=== PATIENT | female | born 1945 | race Caucasian/White ===

== ENCOUNTER 2016-11-05 16:39 | Observation (INO) | payer MEDICARE ==
[~2016-11-05] VITALS: Ht 175.3 cm; Wt 63.6 kg
[~2016-11-05 16:39] MED LIST: GLUMETZA500 MG PO; LEVOTHYROXINE88 MCG PO; NORCO 5-325 TA1 EACH PO; SIMVASTATIN40 MG PO
--- NOTE | 2016-11-05 19:14 | EKG ---
[facility] [address] [facility] [place] [address] Signed Sinus rhythm with premature supraventricular complexes Otherwise normal ECG No previous ECGs available Confirmed by LASHAUN KELLER MD ([id number]) on 11/05/2016 7:13:55 PM Electronically Signed By: LASHAUN KELLER MD 11/05/16 1914 PATIENT NAME: MATT GARLAND ALEKSANDER Electrocardiogram DATE OF : 47 PHYSICIAN: LASHAUN KELLER MD REPORT #: [id number] REPORT IS CONFIDENTIAL AND NOT TO BE RELEASED WITHOUT AUTHORIZATION
--- NOTE | 2016-11-05 20:32 | NUR ---
71YR OLD WOMAN ADMITTED FROM ER VIA STRETCHER TO ROOM 119 ACCOMPANIED BY . PT IS ALERT, ORIENTED, ABLE TO STAND AND TRANSFER SELF ONTO BED. DENIES ANY HEADACHE AT THIS TIME. ORIENTED TO ROOM AND CALL LIGHT. DR SCOTT HERE TO ASSESS PT. CALL LIGHT IN EASY REACH.
--- NOTE | 2016-11-05 21:51 | NUR ---
PT ATE DINNER TRAY, HS MEDS GIVEN, CONT. TO DENY ANY HEADACHE OR DISCOMFORT, UP TO BATHROOM TO VOID. NO DIZZINESS OR WEAKNESS. PLACED ON TELE #4 [id number]. CALL LIGHT IN EASY REACH. WATCHING TV PROGRAM.
--- NOTE | 2016-11-05 23:23 | NUR ---
REPORT RECIEVED FROM CLIENT EXECUTIVE. RESUMING CARE OF PATIENT. PATIENT RESTING IN BED ON LEFT SIDE. EYES CLOSED. BREATHING EVEN AND NONLABORED. RR14. CALL LIGHT WITHIN REACH.
--- NOTE | 2016-11-06 01:56 | NUR ---
PATIENT ALERTED STAFF FOR NEED TO USE THE BATHROOM. PATIENT WAS A STAND BY ASSIST. GAIT APPEARED STEADY AND PATIENT DENIED ANY LIGHTHEADEDNESS OR DIZZINESS. PATIENT DENIED PAIN. PATIENT RETURNED TO BED AND DENIES FURTHER NEEDS AT THIS TIME. CALL LIGHT WITHIN REACH.
--- NOTE | 2016-11-06 04:27 | NUR ---
PATIENT RESTING IN BED. EYES CLOSED. RR 16.
--- NOTE | 2016-11-06 05:16 | NUR ---
PATIENT RESTED WELL DURING THE SHIFT. PATIENT ADMITTED FROM ED FOR TIA, PATIENT COMPLAINED OF LEFT SIDED FACIAL DROOP, SYMPTOMS RESOLVED PROIOR TO ARRIVAL. PATIENT HAS IV IN RIGHT ARM WITH NS AT 75MLS/HR. PATIENT STAND BY ASSIT. GAIT STEADY. NO COMPLAINTS OF PAIN OR NAUSEA. TELLY #4, NORMAL SINUS RHYTHM. CARDIAC DIET.
--- NOTE | 2016-11-06 06:05 | NUR ---
PATIENT UP TO BATHROOM. STAND BY ASSIST. PATIENT DENIES PAIN OR NAUSEA. PATIENT AAOX3. NEURO STATUS WNL. LUNG SOUNDS CLEAR. PATIENT REQUESTED TO TAKE HER HOME THYROID MEDICATION AT THIS TIME DUE TO HER NORMAL MEDICATION ROUTINE. RECIEVED TELEPHONE ORDERS FROM MD ALLOWING PATIENT TO TAKE HOME MEDICATION. VERIFIED VERBAL ORDER USING READ BACK METHOD. PATIENT BACK IN BED. CALL LIGHT WITHIN REACH. NO FURTHER REQUEST AT THIS TIME.
--- NOTE | 2016-11-06 06:59 | NUR ---
[employer]UST[employer]AL [employer] MANAGER YULISA BLOOD LAB WAS UNABLE TO. PATIENT TOLERATED ACTIVITY WELL. BLOOD SENT TO LAB. PATIENT DENIES ANY FURTHER NEEDS CALL LIGHT IN REACH.
--- NOTE | 2016-11-06 07:31 | NUR ---
RECIEVED BEDSIDE REPORT FROM NKECHI SOTO AND NKECHI JAUREGUI. PT AWAKE AND ALERT IN BED. NO REPORTS OF PAIN, NAUSEA, AT THIS TIME. NO SLURRING OF SPEECH, NO WEAKNESS NOTED.
[2016-11-06] MEDS ORDERED: PLAVIX75 MG PO (08:54)
--- NOTE | 2016-11-06 10:24 | NUR ---
PT AND SPOUSE EDUCATED ABOUT NEW RX FROM PHARMACY AND RN. PT VERBALIZED UNDERSTANDING OF INSTRUCTIONS FOR MEDICATION. PT VERBALIZED UNDERSTANDING FOR FOLLOW UP CARE WITH PCP AND WHEN TO CALL THE DOCTOR. PT ESCORTED OFF THE FLOOR BY JOSE.
== END 2016-11-06 10:19 | disposition home or self-care (01) ==
LOC: ED 16:39 → MS 19:34
PROVIDERS: ADMIT Internal Medicine
DX: G45.9 Transient cerebral ischemic attack, unspecified (principal); E11.9 Type 2 diabetes mellitus without complications; E03.9 Hypothyroidism, unspecified; I77.74 Dissection of vertebral artery; I65.01 Occlusion and stenosis of right vertebral artery; E78.5 Hyperlipidemia, unspecified; Z79.84 Long term (current) use of oral hypoglycemic drugs; Z79.891 Long term (current) use of opiate analgesic; Z79.899 Other long term (current) drug therapy; Z88.3 Allergy status to other anti-infective agents; Z88.8 Allergy status to other drugs, medicaments and biological substances
CPT/HCPCS: 70496; 70498; 71010; 80048; 80053; 83735; 84484; 85025; 85610; 93005; 93010; 99285; G0378; J7030; Q9967

== ENCOUNTER 2019-10-17 06:25 | Day surgery (SDC) | payer MEDICARE ==
[~2019-10-17] VITALS: Ht 177.8 cm; Wt 60.3 kg
[~2019-10-17 06:25] MED LIST changes: +COZAAR25 MG PO; +FORTAMET500 MG PO; +PILOCARPINE HCL5 MG PO; +PLAVIX75 MG PO
--- NOTE | 2019-10-17 08:20 | NUR ---
10/17/19 0820 Juliana Perez 0816-PATIENT ARRIVED TO PACU ON 3L NC PLACED ON 2L. PATIENT DROWSY EYES OPEN DENIES PAIN OR NAUSEA. ENCOURAGED TO PASS GAS. IVF INFUSING.
--- NOTE | 2019-10-17 10:22 | OR ---
[facility] [address] [place], [place] [address] Signed DATE OF OPERATION: 10/17/2019 SURGEON: Valentin Hui MD PREOPERATIVE DIAGNOSES: 1. Mother with colon cancer in her 70s. 2. Brother with colon polyps in his 50s. POSTOPERATIVE DIAGNOSES: Long redundant colon. PROCEDURE: Colonoscopy without biopsy. ESTIMATED BLOOD LOSS: None. INDICATIONS: Matt is a 74-year-old female, asked to see me for a followup colonoscopy. We know that her mother had colon cancer in her 70s and her brother had colon polyps in his 50s. In addition, their family lives into the late 80s and into the 90s. Matt herself is quite healthy and functionally fit at age 73. She returns now for followup colonoscopy. Because of her long redundant colon, she does generally take a little extra Versed and fentanyl. She realizes that often keeps her sleep a longer than some others, will undergo a colonoscopy. In the meantime, she really has no lower GI complaints. In the office, I gave her a pamphlet on colonoscopy and we looked at that together along with the risks including, but not limited to gas bloating, crampy abdominal pain, bleeding, perforation requiring surgery, and missed diagnosis and again, we reviewed the need for IV conscious sedation, she had expressed understanding and wished to proceed. DESCRIPTION OF PROCEDURE: Matt was taken into our endoscopy suite and placed in the left lateral decubitus position. She took 5 mg of Versed and 150 mcg of fentanyl to cover the case. Again, we used some abdominal compression in order to advance the scope. The scope was passed back and forth and she was rotated into the supine position and eventually made it around hepatic flexure and we could see down the right colon. We had camera all the way up to the handle and we simply could not advance the scope any further. Her prep was quite excellent. Even then we did not have excellent detail of her cecum and the proximal 1/3 to 1/2 of the right colon. The rest of the colon was quite unremarkable although very long and redundant. No diverticulosis and no polyps. The rectum was Electronically Signed By: VALENTIN HUI MD 10/17/19 1022 PATIENT NAME: MATT GARLAND OPERATIVE REPORT DATE OF : 47 REPORT #: [id number] PHYSICIAN: VALENTIN HUI MD PCP: NIKKI FLORES MD REPORT IS CONFIDENTIAL AND NOT TO BE RELEASED WITHOUT AUTHORIZATION [facility] [address] [place], [place] [address] Signed unremarkable. Upon retroflexion of the scope, there was no additional pathology noted above the anal canal. After this, the gas was suctioned out and the colonoscope removed. Matt actually tolerated the procedure quite well. RECOMMENDATIONS: I will see Matt back in my office in 7 to 14 days to review her results. We will offer her a barium enema to better evaluate the right colon. Valentin Hui MD ALB/SALVADORL /[id number] cc: MD Valentin Felix MD Copies: NIKKI FLORES MD, ANDREW L MD ~ Electronically Signed By: VALENTIN HUI MD 10/17/19 1022 PATIENT NAME: MATT GARLAND OPERATIVE REPORT DATE OF : 47 REPORT #: [id number] PHYSICIAN: VALENTIN HUI MD PCP: NIKKI FLORES MD REPORT IS CONFIDENTIAL AND NOT TO BE RELEASED WITHOUT AUTHORIZATION
== END 2019-10-17 09:05 | disposition home or self-care (01) ==
LOC: DS 06:25 → OPS 06:25 → DS 06:45 → OPS 06:45
PROVIDERS: Colon & Rectal Surgery
PROC: 0DJD8ZZ Inspection of Lower Intestinal Tract, Via Natural or Artificial Opening Endoscopic (ICD-10-PCS; principal; 2019-10-17 06:45)
DX: K63.89 Other specified diseases of intestine (principal); E03.9 Hypothyroidism, unspecified; E11.9 Type 2 diabetes mellitus without complications; Z79.899 Other long term (current) drug therapy; Z79.84 Long term (current) use of oral hypoglycemic drugs; Z88.1 Allergy status to other antibiotic agents; Z80.0 Family history of malignant neoplasm of digestive organs
CPT/HCPCS: 99153; G0500; J2250; J3010; J7121

== ENCOUNTER 2021-10-04 11:50 | Emergency (ER) | payer MEDICARE ==
[~2021-10-04] VITALS: Ht 177.8 cm; Wt 61.9 kg
[2021-10-04] MEDS ORDERED: ATORVASTATIN CA80 MG PO (12:16)
[2021-10-04] MEDS ORDERED: LOSARTAN POTASS25 MG PO (12:17)
[2021-10-04] MEDS ORDERED: ASPIRIN81 MG PO (12:17)
--- NOTE | 2021-10-05 07:37 | EKG ---
[facility] [address] [place] [address] Signed Normal sinus rhythm Septal infarct , age undetermined Abnormal ECG When compared with ECG of 05-NOV-2016 17:10, premature supraventricular complexes are no longer present Septal infarct is now present Confirmed by LASHAUN KELLER MD ([id number]) on 10/05/2021 7:37:30 AM Electronically Signed By: LASHAUN KELLER MD 10/05/21 0737 PATIENT NAME: MATT GARLAND ALEKSANDER Electrocardiogram DATE OF : 47 PHYSICIAN: LASHAUN KELLER MD REPORT #: [id number] REPORT IS CONFIDENTIAL AND NOT TO BE RELEASED WITHOUT AUTHORIZATION
== END 2021-10-04 16:15 | disposition home or self-care (01) ==
LOC: ED 11:50
DX: R55 Syncope and collapse (principal); E87.1 Hypo-osmolality and hyponatremia; E11.9 Type 2 diabetes mellitus without complications; Z88.8 Allergy status to other drugs, medicaments and biological substances; Z88.1 Allergy status to other antibiotic agents
CPT/HCPCS: 36415; 80053; 81001; 83735; 84443; 84484; 85025; 93005; 93010